=== PATIENT | female | born 1970 | race Caucasian/White ===

== ENCOUNTER 2016-09-13 15:33 | Emergency (ER) | payer MEDICAID ==
[2016-09-13 17:01] LABS: APPEARANCE HAZY (CLEAR); BILIRUBIN NEGATIVE (NEGATIVE); COLOR YELLOW (YELLOW); GLUCOSE NEGATIVE (NEGATIVE); KETONE NEGATIVE (NEGATIVE); LEUKOCYTE ESTERASE 1+ (NEGATIVE); NITRITE NEGATIVE (NEGATIVE); PROTEIN NEGATIVE (NEGATIVE); UROBILINOGEN NORMAL (NORMAL)
[2016-09-13 17:03] LABS: BACTERIA MANY /hpf (NONE SEEN); RED CELLS - URINE 0-5 /hpf (0-5)
[2016-09-13 17:04] LABS: HCG URINE NEGATIVE (NEGATIVE)
== END 2016-09-13 21:21 | disposition home or self-care (01) ==
LOC: D.ER 15:33
PROVIDERS: Family Medicine
DX: F43.20 Adjustment disorder, unspecified (principal); M79.672 Pain in left foot; N39.0 Urinary tract infection, site not specified

== ENCOUNTER 2017-02-03 19:01 | Emergency (ER) | payer MEDICAID ==
[2017-02-03 19:22] LABS: BASOPHILS 0.5 % (0-2); EOSINOPHILS 2.7 % (0-7); HEMATOCRIT 40.1 % (36.0-48.0); HEMOGLOBIN 13.2 g/dL (12-16); IMMATURE GRANULOCYTES 0.1 % (0-5); LYMPHOCYTES 26.1 % (15-50); MCH 28.8 pg (26.0-34.0); MCHC 32.9 g/dL (31.0-37.0); MCV 87.4 fL (80.0-100.0); MEAN PLATELET VOLUME 10.1 fL (7.4-10.4); NEUTROPHILS 62.6 % (40-80); PLATELET COUNT 223 10x3/uL (130-400); RBC 4.59 10x6/uL (4.00-5.40); RDW 14.1 % (11.5-14.5); WBC 8.2 10x3/uL (4.8-10.8)
[2017-02-03 19:36] LABS: ALBUMIN 3.8 g/dL (3.4-5.0); ANION GAP 14.4 mmol/L (8-16); BILIRUBIN - TOTAL 0.26 mg/dL (0.2-1.3); CALCIUM 9.3 mg/dL (8.5-10.1); CARBON DIOXIDE 25.9 mmol/L (21.0-32.0); CREATININE - SERUM 0.9 mg/dL (0.6-1.3); POTASSIUM - SERUM 3.3 mmol/L (3.5-5.1)
[2017-02-03 19:41] LABS: APPEARANCE CLOUDY (CLEAR); BILIRUBIN NEGATIVE (NEGATIVE); COLOR YELLOW (YELLOW); GLUCOSE NEGATIVE (NEGATIVE); KETONE NEGATIVE (NEGATIVE); LEUKOCYTE ESTERASE 1+ (NEGATIVE); NITRITE NEGATIVE (NEGATIVE); PROTEIN NEGATIVE (NEGATIVE); UROBILINOGEN NORMAL (NORMAL)
[2017-02-03 19:50] LABS: BACTERIA MODERATE /hpf (NONE SEEN); RED CELLS - URINE 0-5 /hpf (0-5)
[2017-02-03 19:51] LABS: HCG URINE NEGATIVE (NEGATIVE)
[2017-02-03 19:59] LABS: UDS - AMPHET NEGATIVE QUAL (NEGATIVE); UDS - BARB NEGATIVE QUAL (NEGATIVE); UDS - BENZO NEGATIVE QUAL (NEGATIVE); UDS - COCAINE NEGATIVE QUAL (NEGATIVE); UDS - METH NEGATIVE QUAL (NEGATIVE); UDS - OPIATE NEGATIVE QUAL (NEGATIVE); UDS - PCP NEGATIVE QUAL (NEGATIVE); UDS - THC NEGATIVE QUAL (NEGATIVE)
== END 2017-02-04 01:05 ==
LOC: D.ER 19:01
PROVIDERS: Emergency Medicine
DX: F23 Brief psychotic disorder (principal)

== ENCOUNTER 2018-04-03 12:19 | Emergency (ER) | payer MEDICAID ==
[2018-04-03 12:31] VITALS: Ht 167.6 cm
[2018-04-03] MEDS ORDERED: CORTISPORIN OTI10 M1 EACH EAR (13:24)
[2018-04-03] MEDS ORDERED: AMOXICILLIN875 MG PO (13:24)
[2018-04-03 13:44] VITALS: BP 110/62
== END 2018-04-03 13:45 | disposition home or self-care (01) ==
LOC: D.ER 12:19
DX: H66.92 Otitis media, unspecified, left ear (principal)

== ENCOUNTER 2018-07-03 19:18 | Emergency (ER) | payer MEDICAID ==
[~2018-07-03] VITALS: Ht 167.6 cm; Wt 77.3 kg
[~2018-07-03 19:18] MED LIST: AMOXICILLIN875 MG PO; CORTISPORIN OTI10 M1 EACH EAR
[2018-07-03 19:22] VITALS: Ht 167.6 cm; Wt 77.3 kg
[2018-07-03 20:16] LABS: BASOPHILS 0.8 % (0-2); EOSINOPHILS 3.6 % (0-7); HEMATOCRIT 29.1 % (36.0-48.0); HEMOGLOBIN 8.5 g/dL (12-16); IMMATURE GRANULOCYTES 0.2 % (0-5); LYMPHOCYTES 34.4 % (15-50); MCH 21.9 pg (26.0-34.0); MCHC 29.2 g/dL (31.0-37.0); MEAN PLATELET VOLUME 9.3 fL (7.4-10.4); MONOCYTES 8.4 % (2-11); NEUTROPHILS 52.6 % (40-80); PLATELET COUNT 258 10x3/uL (130-400); RBC 3.88 10x6/uL (4.00-5.40); RDW 16.8 % (11.5-14.5); WBC 6.4 10x3/uL (4.8-10.8)
[2018-07-03 20:32] LABS: APPEARANCE CLEAR (CLEAR); BILIRUBIN NEGATIVE (NEGATIVE); COLOR YELLOW (YELLOW); GLUCOSE NEGATIVE (NEGATIVE); KETONE NEGATIVE (NEGATIVE); NITRITE NEGATIVE (NEGATIVE); PROTEIN NEGATIVE (NEGATIVE); UROBILINOGEN NORMAL (NORMAL)
[2018-07-03 20:33] LABS: HCG SERUM NEGATIVE (NEGATIVE)
[2018-07-03 20:36] LABS: ALBUMIN 3.3 g/dL (3.4-5.0); ALKALINE PHOSPHATASE 71 U/L (46-116); ALT (SGPT) 76 U/L (10-68); BILIRUBIN - TOTAL 0.11 mg/dL (0.2-1.3); CALC OSMOLALITY 277 mosm/kg (275-300); CALCIUM 8.7 mg/dL (8.5-10.1); CARBON DIOXIDE 28.4 mmol/L (21.0-32.0); CHLORIDE - SERUM 103 mmol/L (98-107); CREATININE - SERUM 0.8 mg/dL (0.6-1.3); GLUCOSE 106 mg/dL (74-106); POTASSIUM - SERUM 3.7 mmol/L (3.5-5.1); PROTEIN - SERUM 7.4 g/dL (6.4-8.2); SODIUM 140 mmol/L (136-145); UREA NITROGEN 11 mg/dL (7-18); eGFR NON AFRICAN AMERICAN 81 mL/min (90-120)
[2018-07-03 20:40] LABS: UDS - AMPHET NEGATIVE QUAL (NEGATIVE); UDS - BARB NEGATIVE QUAL (NEGATIVE); UDS - BENZO NEGATIVE QUAL (NEGATIVE); UDS - COCAINE NEGATIVE QUAL (NEGATIVE); UDS - OPIATE NEGATIVE QUAL (NEGATIVE); UDS - PCP NEGATIVE QUAL (NEGATIVE); UDS - THC NEGATIVE QUAL (NEGATIVE)
[2018-07-03 20:53] LABS: CKMB 1.5 U/L (0.0-3.6); CREATINE KINASE 123 UL (21-215)
[2018-07-03 20:55] LABS: TROPONIN-I < 0.017 ng/mL (0.000-0.060)
[2018-07-03] MEDS ORDERED: FERROUS SULFAT325 MG PO (22:56)
[2018-07-03 23:19] LABS: % SATURATION 16 % (15-55); IRON 74 ug/dl (35-150); TOTAL IRON BIND CAPACITY 460 ug/dl (260-445); UNSAT IRON BIND CAPACITY 386 ug/dl (150-375)
[2018-07-03 23:45] VITALS: BP 133/68
[2018-07-05 10:22] LABS: FOLATE (FOLIC ACID) - SERUM >20.0 ng/mL (>3.0)
[2018-07-05 20:08] LABS: SPE - A/G RATIO 0.9 (0.7-1.7); SPE - ALBUMIN 3.5 g/dL (2.9-4.4); SPE - ALPHA-1 GLOBULIN 0.3 g/dL (0.0-0.4); SPE - ALPHA-2 GLOBULIN 0.8 g/dL (0.4-1.0); SPE - BETA GLOBULIN 1.4 g/dL (0.7-1.3); SPE - GAMMA GLOBULIN 1.2 g/dL (0.4-1.8); SPE - M-SPIKE Not Observed g/dL (Not Observed); SPE - TOTAL PROTEIN 7.2 g/dL (6.0-8.5)
== END 2018-07-03 23:45 | disposition home or self-care (01) ==
LOC: D.ER 19:18
PROVIDERS: Family Medicine
DX: D64.9 Anemia, unspecified (principal); M54.5 Low back pain; R42 Dizziness and giddiness; R53.1 Weakness; R11.0 Nausea

== ENCOUNTER 2018-07-18 03:07 | Emergency (ER) | payer MEDICAID ==
[~2018-07-18] VITALS: Ht 167.6 cm; Wt 86.4 kg
[~2018-07-18 03:07] MED LIST changes: +FERROUS SULFAT325 MG PO
[2018-07-18 03:09] VITALS: Ht 167.6 cm; Wt 86.4 kg
[2018-07-18 04:08] LABS: BASOPHILS 0.5 % (0-2); EOSINOPHILS 2.2 % (0-7); HEMATOCRIT 33.3 % (36.0-48.0); HEMOGLOBIN 9.9 g/dL (12-16); IMMATURE GRANULOCYTES 0.2 % (0-5); LYMPHOCYTES 16.3 % (15-50); MCH 23.7 pg (26.0-34.0); MCHC 29.7 g/dL (31.0-37.0); MCV 79.9 fL (80.0-100.0); MEAN PLATELET VOLUME 9.6 fL (7.4-10.4); MONOCYTES 8.1 % (2-11); NEUTROPHILS 72.7 % (40-80); PLATELET COUNT 270 10x3/uL (130-400); RBC 4.17 10x6/uL (4.00-5.40); RDW 20.9 % (11.5-14.5); WBC 9.1 10x3/uL (4.8-10.8)
[2018-07-18 04:13] LABS: ALBUMIN 3.4 g/dL (3.4-5.0); ALKALINE PHOSPHATASE 84 U/L (46-116); ALT (SGPT) 30 U/L (10-68); CALC OSMOLALITY 274 mosm/kg (275-300); CALCIUM 8.5 mg/dL (8.5-10.1); CARBON DIOXIDE 27.8 mmol/L (21.0-32.0); CHLORIDE - SERUM 101 mmol/L (98-107); CREATININE - SERUM 0.7 mg/dL (0.6-1.3); GLUCOSE 118 mg/dL (74-106); POTASSIUM - SERUM 3.6 mmol/L (3.5-5.1); PROTEIN - SERUM 7.1 g/dL (6.4-8.2); SODIUM 137 mmol/L (136-145); UREA NITROGEN 12 mg/dL (7-18); eGFR NON AFRICAN AMERICAN > 90 mL/min (90-120)
[2018-07-18 04:17] LABS: LIPASE 126 U/L (73-393)
[2018-07-18 04:23] LABS: TROPONIN-I < 0.017 ng/mL (0.000-0.060)
[2018-07-18 04:34] VITALS: BP 125/71
== END 2018-07-18 04:35 | disposition home or self-care (01) ==
LOC: D.ER 03:07
PROVIDERS: Family Medicine
DX: M54.5 Low back pain (principal); D64.9 Anemia, unspecified; J02.9 Acute pharyngitis, unspecified; M25.562 Pain in left knee